=== PATIENT | female | born 1975 | race African-American/Black ===

== ENCOUNTER 2018-10-21 10:40 | Emergency (ER) | payer MEDICARE, MEDICAID ==
[~2018-10-21] VITALS: Ht 157.5 cm; Wt 63.5 kg
[~2018-10-21 10:40] MED LIST: NAPROXEN375 MG PO; QUETIAPINE FUM100 MG PO; UNOBMED
--- NOTE | 2018-10-21 10:40 | NUR ---
brought in by paramedics with [employer] escort patient is suicidal wants run to traffic .per patient she is too deprssed wants to be placed in a psychiatric hospital , patieint is on 5150 hold. [employer] at bedside
[2018-10-21] MEDS ORDERED: GEMFIBROZIL600 MG ORAL (10:46)
[2018-10-21] MEDS ORDERED: QUETIAPINE FUMA25 MG ORAL (10:46)
[2018-10-21] MEDS ORDERED: ZOLOFT25 MG ORAL (10:46)
[2018-10-21] MEDS ORDERED: HYDROCHLOROTH12.5 M2 ORAL (10:46)
[2018-10-21] MEDS ORDERED: METFORMIN HCL500 M1 ORAL (10:46)
--- NOTE | 2018-10-21 10:57 | NUR ---
ED Nurse Note: belongings locked in psych locker #2. pt keep reading glasses with her.
[2018-10-21 11:00] VITALS: BP 150/75
--- NOTE | 2018-10-21 11:10 | NUR ---
sitter at bedside. patient is awake alert oriented no distress at this time
[2018-10-21 11:50] LABS: BASOPHILS % (AUTO) 0.7 % (0.0-2.0); EOSINOPHILS % (AUTO) 0.4 % (0.0-3.0); HEMATOCRIT 46.1 % (37.0-47.0); HEMOGLOBIN 15.6 G/DL (12.0-16.0); LYMPHOCYTES % (AUTO) 17.3 % (20.0-45.0); MEAN CORPUSCULAR VOLUME 85 FL (80-99); NEUTROPHILS % (AUTO) 76.5 % (45.0-75.0); PLATELET COUNT 380 K/UL (150-450); WHITE BLOOD COUNT 11.6 K/UL (4.8-10.8)
[2018-10-21 11:52] LABS: ANION GAP 11 mmol/L (5-15); BLOOD UREA NITROGEN 10 mg/dL (7-18); CALCIUM 9.5 MG/DL (8.5-10.1); CARBON DIOXIDE 28 MMOL/L (21-32); CHLORIDE 104 MMOL/L (98-107); CREATININE 0.6 MG/DL (0.55-1.30); POTASSIUM 2.9 MMOL/L (3.5-5.1); SODIUM 143 MMOL/L (136-145)
[2018-10-21 11:54] LABS: APPEARANCE,URINE CLEAR; BILIRUBIN, URINE NEGATIVE (NEGATIVE); COLOR,URINE PALE YELLOW; GLUCOSE, URINE (UA) NEGATIVE (NEGATIVE); KETONES,URINE NEGATIVE (NEGATIVE); LEUKOCYTE ESTERASE ,URINE NEGATIVE (NEGATIVE); NITRITE,URINE NEGATIVE (NEGATIVE); PH,URINE 7 (4.5-8.0); PROTEIN,URINE NEGATIVE (NEGATIVE); UROBILINOGEN,URINE NORMAL MG/DL (0.0-1.0)
[2018-10-21 12:05] LABS: ALANINE AMINOTRANSFERASE 15 U/L (12-78); ALBUMIN 4.2 G/DL (3.4-5.0); ALKALINE PHOSPHATASE 119 U/L (46-116); ASPARTATE AMINO TRANSFERASE 17 U/L (15-37); BILIRUBIN,TOTAL 0.7 MG/DL (0.2-1.0)
--- NOTE | 2018-10-21 12:56 | NUR ---
ED Nurse Note: pt is eating meal on a sitting position. po meds given as ordered. pt able to [place]e. will continue to monitor.
--- NOTE | 2018-10-21 14:38 | Emergency Room Report ---
History of Present Illness General Chief Complaint: Behavioral Complaint Source: Patient (Valentin Aldana MD) Present Illness HPI Patient is a 43-year-old female brought in by [employer] and EMS with increased suicidal thoughts. Patient reports having increased thoughts of harming herself. She states that she wants to jump in jump off of a building. History is limited by patient's poor cooperation. She had previous hospitalizations in the past. Patient was placed on a 5150 hold by [employer]. (Valentin Aldana MD) Allergies: Coded Allergies: No Known Allergies (Unverified , 04/24/17) Patient History Past Medical History: see triage record Last Menstrual Period: unknown Reviewed Nursing Documentation: PMH: Agreed; PSxH: Agreed (Valentin Aldana MD) Nursing Documentation-PMH Past Medical History: No History, Except For Hx Hypertension: Yes Hx Diabetes: Yes History Of Psychiatric Problem: Yes (Valentin Aldana MD) Review of Systems All Other Systems: negative except mentioned in HPI (Valentin Aldana MD) Physical Exam Vital Signs Date Time Temp Pulse Resp B/P (MAP) Pulse Ox O2 Delivery O2 Flow Rate FiO2 10/21/18 10:40 97.2 76 18 150/75 (100) 97 Room Air Sp02 EP Interpretation: reviewed, normal General Appearance: alert/responsive, no apparent distress, GCS 15, non-toxic Head: atraumatic Eyes: PERRL, lids + conjunctiva normal ENT: hearing intact, no angioedema Neck: supple/symm/no masses, no meningismus Respiratory: effort normal, no wheezing, chest symmetrical Cardiovascular: regular rate, rhythm, no edema Cardiovascular #2: 2+ carotid (R), 2+ carotid (L), 2+ dorsalis pedis (R), 2+ dorsalis pedis (L) Gastrointestinal: non-tender, no mass, non-distended, no rebound/guarding, normal bowel sounds Musculoskeletal: gait & station normal, strength & tone normal, normal ROM, non -tender Neurologic: oriented x3, sensory intact, normal speech Psychiatric: anxious Skin: no rash, well hydrated Lymphatic: normal inspection (Valentin Aldana MD) Medical Decision Making Diagnostic Impression: Primary Impression: Suicidal thoughts ER Course Patient presented for increased suicidal thoughts. Differential diagnoses include substance abuse, psychosis, bipolar disorder, depression, malingering. Patient was noted to have some suicidal thoughts and plan to harm her self. Patient was placed on a 5150 by [employer]. Patient is medically cleared for psychiatric placement. Labs Test 10/21/18 11:12 White Blood Count 11.6 K/UL (4.8-10.8) Red Blood Count 5.40 M/UL (4.20-5.40) Hemoglobin 15.6 G/DL (12.0-16.0) Hematocrit 46.1 % (37.0-47.0) Mean Corpuscular Volume 85 FL (80-99) Mean Corpuscular Hemoglobin 28.9 PG (27.0-31.0) Mean Corpuscular Hemoglobin Concent 33.9 G/DL (32.0-36.0) Red Cell Distribution Width 11.0 % (11.6-14.8) Platelet Count 380 K/UL (150-450) Mean Platelet Volume 8.5 FL (6.5-10.1) Neutrophils (%) (Auto) 76.5 % (45.0-75.0) Lymphocytes (%) (Auto) 17.3 % (20.0-45.0) Monocytes (%) (Auto) 5.0 % (1.0-10.0) Eosinophils (%) (Auto) 0.4 % (0.0-3.0) Basophils (%) (Auto) 0.7 % (0.0-2.0) Urine Color Pale yellow Urine Appearance Clear Urine pH 7 (4.5-8.0) Urine Specific [place] 1.005 (1.005-1.035) Urine Protein Negative (NEGATIVE) Urine Glucose (UA) Negative (NEGATIVE) Urine Ketones Negative (NEGATIVE) Urine Blood Negative (NEGATIVE) Urine Nitrite Negative (NEGATIVE) Urine Bilirubin Negative (NEGATIVE) Urine Urobilinogen Normal MG/DL (0.0-1.0) Urine Leukocyte Esterase Negative (NEGATIVE) Urine HCG, Qualitative Negative (NEGATIVE) Sodium Level 143 MMOL/L (136-145) Potassium Level 2.9 MMOL/L (3.5-5.1) Chloride Level 104 MMOL/L (98-107) Carbon Dioxide Level 28 MMOL/L (21-32) Anion Gap 11 mmol/L (5-15) Blood Urea Nitrogen 10 mg/dL (7-18) Creatinine 0.6 MG/DL (0.55-1.30) Estimat Glomerular Filtration Rate > 60 mL/min (>60) Glucose Level 117 MG/DL (74-106) Calcium Level 9.5 MG/DL (8.5-10.1) Total Bilirubin 0.7 MG/DL (0.2-1.0) Aspartate Amino Transf (AST/SGOT) 17 U/L (15-37) Alanine Aminotransferase (ALT/SGPT) 15 U/L (12-78) Alkaline Phosphatase 119 U/L (46-116) Total Protein 8.2 G/DL (6.4-8.2) Albumin 4.2 G/DL (3.4-5.0) Globulin 4.0 g/dL Albumin/Globulin Ratio 1.0 (1.0-2.7) Thyroid Stimulating Hormone (TSH) 2.023 uiU/mL (0.358-3.740) Salicylates Level 3.4 ug/mL (2.8-20) Urine Opiates Screen Negative (NEGATIVE) Acetaminophen Level < 2 MCG/ML (10-30) Urine Barbiturates Screen Negative (NEGATIVE) Phencyclidine (PCP) Screen Negative (NEGATIVE) Urine Amphetamines Screen Negative (NEGATIVE) Urine Benzodiazepines Screen Negative (NEGATIVE) Urine Cocaine Screen Negative (NEGATIVE) Urine Marijuana (THC) Screen Negative (NEGATIVE) Serum Alcohol < 3 mg/dL (Valentin Aldana MD) ER Course Patient signed out to me. She was pending psychiatric transfer once potassium levels normalized. Potassium level now normal. Accepted to [facility] in [place]. Patient is deemed medically stable. She is medically clear. (Herb Jiang MD) Last Vital Signs Date Time Temp Pulse Resp B/P (MAP) Pulse Ox O2 Delivery O2 Flow Rate FiO2 10/21/18 11:00 76 18 Room Air 10/21/18 11:00 97.2 150/75 97 Status: improved (Valentin Aldana MD) Status: improved (Herb Jiang MD) Disposition: XFER TO PSYCH HOSP/UNIT Condition: Stable Referrals: NON PHYSICIAN (PCP) Valentin Aldana MD Oct 21, 2018 14:38 Herb Jiang MD Oct 22, 2018 01:34
[2018-10-21 15:19] VITALS: BP 142/85
--- NOTE | 2018-10-21 17:30 | NUR ---
ED Nurse Note: pt eating dinner on sitting position. pt being monitor with sitter. pt has no complait t the moment. with vss. will continue to monitor.
--- NOTE | 2018-10-21 18:32 | NUR ---
ED Nurse Note: pt is in gurney, laying down quitly, no complaint at the moment. sitter on bedside. will continue to monitor.
[2018-10-21 18:36] VITALS: BP 136/75
[2018-10-21 20:28] LABS: ANION GAP 6 mmol/L (5-15); BLOOD UREA NITROGEN 13 mg/dL (7-18); CALCIUM 9.2 MG/DL (8.5-10.1); CARBON DIOXIDE 29 MMOL/L (21-32); CHLORIDE 103 MMOL/L (98-107); CREATININE 0.6 MG/DL (0.55-1.30); POTASSIUM 2.9 MMOL/L (3.5-5.1); SODIUM 138 MMOL/L (136-145)
--- NOTE | 2018-10-21 20:30 | NUR ---
ED Nurse Note: Pt resting in bed, non-labored breathing, no signs of distress, sitter at bedside, will continue to monitor
--- NOTE | 2018-10-21 22:30 | NUR ---
ED Nurse Note: ED Nurse Note: Pt resting in bed, non-labored breathing, no signs of distress, sitter at bedside, will continue to monitor. Offered meal and water and toiletting
[2018-10-22] MEDS ORDERED: Acetaminophen 500mg (ES) tab ORAL ONE (00:15)
--- NOTE | 2018-10-22 00:30 | NUR ---
ED Nurse Note: Pt resting in bed, non-labored breathing, no signs of distress, sitter at bedside, will continue to monitor.
[2018-10-22 01:11] LABS: ANION GAP 9 mmol/L (5-15); BLOOD UREA NITROGEN 11 mg/dL (7-18); CALCIUM 9.5 MG/DL (8.5-10.1); CARBON DIOXIDE 27 MMOL/L (21-32); CHLORIDE 103 MMOL/L (98-107); CREATININE 0.5 MG/DL (0.55-1.30); POTASSIUM 3.5 MMOL/L (3.5-5.1); SODIUM 139 MMOL/L (136-145)
--- NOTE | 2018-10-22 02:30 | NUR ---
ED Nurse Note: Pt resting in bed, c/o 10/02 headache, MD notified, medication administered, sitter at bedside, will continue to monitor
[2018-10-22 03:10] VITALS: BP 136/75
--- NOTE | 2018-10-22 03:10 | NUR ---
ER DISCHARGE NOTE: Patient is cleared to be discharged and transfered to [facility] per ERMD, pt is aox3, on room air, with stable vital signs. pt was given dc and prescription instructions, pt was able to verbalize understanding, pt id band and iv site removed without complications per facility RN's request. pt is able to ambulate with steady gait. pt took all belongings. [employer] present, personel to accompany pt. Pt calm and cooperative
== END 2018-10-22 03:10 ==
LOC: EDBD 10:40 → EMR 11:12
DX: R45.851 Suicidal ideations (principal); I10 Essential (primary) hypertension; E11.9 Type 2 diabetes mellitus without complications
CPT/HCPCS: 36415; 80048; 80053; 80307; 81003; 81025; 84443; 85025; 99285; G0480; 80329; J8499